=== PATIENT | male | born 1980 | race African-American/Black ===

== ENCOUNTER 2019-01-17 10:04 | Emergency (ER) | payer OTHER ==
[~2019-01-17] VITALS: Ht 180.3 cm; Wt 122.0 kg
[2019-01-17] MEDS ORDERED: BACITRACIN ZINC OINT UDPKT TOP ONE (10:45)
[2019-01-17] MEDS ORDERED: LIDOCAINE HCL/EPINEPHRINE 1%-EPI 1:100,000 20 ML VIAL INFIL ONE (10:45)
[2019-01-17] MEDS ORDERED: LIDOCAINE 1%/EPI 1:100,000 10 ML VIAL IJ ONE (10:45)
[2019-01-17] MEDS ORDERED: TETANUS, DIPHTHERIA, PERTUSSIS VAC/PF 0.5ML (>7YR OLD) IM ONE (10:45)
[2019-01-17] MEDS ORDERED: ACETAMINOPHEN WITH CODEINE 300/30MG TABLET PO ONE (11:00)
[2019-01-17 12:14] VITALS: BP 110/74
== END 2019-01-17 12:14 | disposition home or self-care (01) ==
LOC: ER 11:19
DX: S81.811A Laceration without foreign body, right lower leg, initial encounter (principal); W13.8XXA Fall from, out of or through other building or structure, initial encounter; W26.8XXA Contact with other sharp object(s), not elsewhere classified, initial encounter; Y93.89 Activity, other specified; Y92.89 Other specified places as the place of occurrence of the external cause
CPT/HCPCS: 12002; 90471; 90715; 99283; J3490; Z7610

== ENCOUNTER 2020-06-29 22:29 | Emergency (ER) | payer OTHER ==
[~2020-06-29] VITALS: Ht 180.3 cm; Wt 125.0 kg
[2020-06-29] MEDS ORDERED: LIDOCAINE 1%/EPI 1:100,000 10 ML VIAL IJ ONE (23:15)
[2020-06-29] MEDS ORDERED: BACITRACIN ZINC OINT UDPKT TOP ONE (23:15)
[2020-06-29] MEDS ORDERED: IBUPROFEN 600MG TABLET PO ONE (23:15)
[2020-06-29] MEDS ORDERED: LIDOCAINE HCL/EPINEPHRINE 1%-EPI 1:100,000 20 ML VIAL INFIL NR (23:45)
[2020-06-30 01:01] VITALS: BP 128/78
== END 2020-06-30 01:04 | disposition home or self-care (01) ==
LOC: ER 22:29
DX: S41.112A Laceration without foreign body of left upper arm, initial encounter (principal); W26.8XXA Contact with other sharp object(s), not elsewhere classified, initial encounter; Y93.89 Activity, other specified; Y92.89 Other specified places as the place of occurrence of the external cause; Y99.8 Other external cause status; F17.290 Nicotine dependence, other tobacco product, uncomplicated; Z98.890 Other specified postprocedural states
CPT/HCPCS: 12002; 99283; J3490

== ENCOUNTER 2024-01-30 15:26 | Emergency (ER) | payer MEDICAID ==
[~2024-01-30] VITALS: Ht 190.5 cm; Wt 113.0 kg
[2024-01-30 15:27] VITALS: O2SAT 97
[2024-01-30] MEDS: CYCLOBENZAPRINE 10MG TABLET PO ONE (16:03)
[2024-01-30] MEDS: ACETAMINOPHEN 650MG/20.3ML UDC PO ONE (16:03)
[2024-01-30 16:04] VITALS: BP 142/86; PULSE 88; RESP 14; TEMP 97.8
== END 2024-01-30 16:30 | disposition home or self-care (01) ==
LOC: ER 15:26
DX: M54.50 Low back pain, unspecified (principal); G89.11 Acute pain due to trauma; Y08.89XA Assault by other specified means, initial encounter; Y93.89 Activity, other specified; Y92.89 Other specified places as the place of occurrence of the external cause; Y99.8 Other external cause status
CPT/HCPCS: 99283